=== PATIENT | female | born 1975 | race Caucasian/White ===

== ENCOUNTER 2022-04-09 10:18 | Outpatient (CLI) | payer OTHER | END 2022-04-09 10:40 | disposition home or self-care (01) | LOC: LAB 10:18 | PROVIDERS: ATTEND Specialist | DX: D50.9 Iron deficiency anemia, unspecified (principal); E83.51 Hypocalcemia; D68.9 Coagulation defect, unspecified; N39.0 Urinary tract infection, site not specified; Z01.810 Encounter for preprocedural cardiovascular examination; Z01.811 Encounter for preprocedural respiratory examination ==

== ENCOUNTER 2022-04-27 12:21 | Inpatient (IN) | payer OTHER ==
[~2022-04-27] VITALS: Ht 160 cm; Wt 70.3 kg
[2022-05-01] MEDS ORDERED: OPTIMAL D31250 MCG (07:00)
[2022-05-01] MEDS ORDERED: INTEGRA PLUS C1 EACH (07:00)
[2022-05-01] MEDS ORDERED: FERROUS SULFAT325 MG (07:00)
[2022-05-04] MEDS ORDERED: IBUPROFEN800 MG PO (07:20)
== END 2022-05-04 09:04 | disposition home or self-care (01) | DRG 743 ==
LOC: O/R 05-01 05:55 → SURG 05-01 07:00 → OB/GYN 05-01 13:22
PROVIDERS: ADMIT Specialist; ATTEND Specialist
PROC: 0UT70ZZ Resection of Bilateral Fallopian Tubes, Open Approach (ICD-10-PCS; 2022-05-01)
PROC: 0UT20ZZ Resection of Bilateral Ovaries, Open Approach (ICD-10-PCS; 2022-05-01)
PROC: 0UT90ZZ Resection of Uterus, Open Approach (ICD-10-PCS; principal; 2022-05-01 07:00)
DX: D25.1 Intramural leiomyoma of uterus (principal); D25.0 Submucous leiomyoma of uterus; D25.2 Subserosal leiomyoma of uterus; N83.11 Corpus luteum cyst of right ovary; N72 Inflammatory disease of cervix uteri; Z20.822 Contact with and (suspected) exposure to COVID-19; N73.6 Female pelvic peritoneal adhesions (postinfective)